=== PATIENT | male | born 1985 | race Caucasian/White ===

== ENCOUNTER 2016-09-07 09:06 | Day surgery (SDC) | payer OTHER ==
[~2016-09-07 09:06] MED LIST: LIDOCAINE 1%/EPINEPHRINE INJ 20 ML VIAL ONE; OXYMETAZOLINE HCL 0.05% NASAL SPRAY 15 ML BOTTLE ONE
[2016-09-07] MEDS ORDERED: FENTANYL CITRATE INJ/PF 100 MCG/2 ML AMPUL ONE ×2 (10:46)
[2016-09-07] MEDS ORDERED: PROPOFOL INJ 200 MG/20 ML VIAL IV ONE (10:47)
[2016-09-07] MEDS ORDERED: ONDANSETRON HCL INJ/PF 4 MG/2 ML SDV ONE ×2 (10:47→14:07)
[2016-09-07] MEDS ORDERED: DEXAMETHASONE SOD PHOS INJ 10 MG/1 ML VIAL ONE ×2 (10:47→10:50)
[2016-09-07] MEDS ORDERED: HYDROMORPHONE HCL INJ/PF 2 MG/ML AMPULE ONE (10:47)
[2016-09-07] MEDS ORDERED: SUCCINYLCHOLINE CHLORIDE INJ 200 MG/10 ML VIAL ONE (10:48)
[2016-09-07] MEDS ORDERED: MIDAZOLAM 2 MG/2 ML INJ ONE (10:48)
[2016-09-07] MEDS ORDERED: WATER FOR INJECTION,STERILE 10 ML SDV ONE (10:51)
[2016-09-07] MEDS ORDERED: OXYMETAZOLINE HCL 0.05% NASAL SPRAY 15 ML BOTTLE ONE (13:31)
--- NOTE | 2016-09-07 14:10 | SURGICARE OPERATIVE REPORT E ---
[facility] Operative Report NAME: TERESE SHIRLEY AGE: 31Y DATE OF SURGERY: 09/07/2016 ROOM: PREOPERATIVE DIAGNOSIS: Chronic rhinosinusitis with nasal polyposis. POSTOPERATIVE DIAGNOSIS: Chronic rhinosinusitis with nasal polyposis. PROCEDURE: 1. Bilateral endoscopic complete ethmoidectomy. 2. Bilateral endoscopic sphenoidotomy. 3. Bilateral endoscopic frontal sinusotomy. 4. CT-based image guidance for revision procedure, nasal polyposis and dissection along the orbits and skull base. SURGEON: JACI FREEMAN M.D. ANESTHESIA: General endotracheal. ESTIMATED BLOOD LOSS: 100 mL. COMPLICATIONS: None. INTRAOPERATIVE FINDINGS: Status post prior sinus surgery appeared to include bilateral maxillary antrostomies and right-sided anterior ethmoidectomy and middle turbinectomy as well as inferior turbinectomies. The right remnant ethmoid cavity was obstructed by nasal polyps. INDICATIONS FOR PROCEDURE: A 31-year-old male with chronic sinusitis and nasal polyps who underwent prior sinus surgery but continued to have recurring and worsening nasal obstruction. Endoscopic examination on CT revealed evidence of sinonasal polyposis in both ethmoid sinuses that were subsequently obstructing the frontal and sphenoid outflows. PROCEDURE IN DETAIL: The patient was met in the preop holding area. All questions were answered and consent was verified. He was then brought back to the operating room and placed supine on the operating table and general endotracheal anesthesia was induced without difficulty. The table was turned for endoscopic sinus surgery. A [employer] fusion headpiece was taped on his forehead and the image guidance system was calibrated using external landmarks on a recent sinus CT. The accuracy was verified prior to commencing the case and image guided suctions were used to assist me in the dissection throughout the case. He was prepped and draped in standard fashion and the nasal cavity was decongested with oxymetazoline. A preoperative time out was performed. A 0 degree endoscope was used to begin the procedure. Local anesthetic was infiltrated along the axilla of the middle turbinates bilaterally and the sphenopalatine foramen region. The left side was approached first. The maxillary antrum was wide open and the sinus appeared healthy. I turned my attention to the ethmoid cavity which was addressed anteriorly with curettes to break up the bony septations and a power microdebrider to remove polyp tissue. This was carried out from medial to lateral toward the lamina papyracea. The posterior ethmoid cells was entered at the level of the basal lamella of the middle turbinate and the posterior cells were removed allowing me to identify the superior turbinate. The inferior 1/3 of the third turbinate was resected and the sphenoid ostium was entered. It was then enlarged with a straight mushroom punch. The posterior ethmoid cells were then subsequently removed after the skull base was identified with an angled curette. The agger nasi cells were then removed via a punch out procedure by removing the inferior aspect of the agger nasi with a Hajek punch and the cells were then curetted with an angled curette from posterior to anterior away from the skull base. This allowed ample access to the frontal outflow which was readily visible with a 0 degree scope. Subsequently a 30 degree scope was used to further exam the frontal sinusotomy which was then expanded carefully with a Hosemann frontal punch. The left side was packed and the right side was similarly approached. There was no middle turbinate on the right side, so the landmarks were more distorted. Polypoid tissue was removed with a microdebrider from medial to lateral and the posterior ethmoid cavity which appears to have been partially dissected was entered. The sphenoid sinus was similarly identified and enlarged with a straight mushroom punch. Dissection and removal of ethmoid septations then proceeded from posterior to anterior along the skull base. The agger nasi were removed via a similar punch-out procedure, allowing access to the frontal outflow which was then enlarged using an angled frontal punch under 30 degree scope visualization. The nasal and ethmoid cavities were verified for hemostasis and irrigated. Stammberger Sinu-Foam reconstituted with 10 mg of Decadron was placed on each ethmoid cavity. The nasal cavity and pharynx were suctioned and he was turned over to the anesthesia for reversal and extubation. He tolerated the procedure well. DICTATING PHYSICIAN: JACI FREEMAN M.D. [id number] PHY#: [id number] ID: [id number] JOB#: [id number] ACCT: [id number] cc:JACI FREEMAN M.D. > [facility]
[2016-09-07] MEDS ORDERED: PROMETHAZINE HCL INJ 25 MG/1 ML VIAL ONE (14:31)
== END 2016-09-07 14:42 | disposition home or self-care (01) ==
LOC: SC 09:06
PROVIDERS: ATTEND Otolaryngology
PROC: 09TU4ZZ Resection of Right Ethmoid Sinus, Percutaneous Endoscopic Approach (ICD-10-PCS; 2016-09-07)
PROC: 09TX4ZZ Resection of Left Sphenoid Sinus, Percutaneous Endoscopic Approach (ICD-10-PCS; 2016-09-07)
PROC: 09TW4ZZ Resection of Right Sphenoid Sinus, Percutaneous Endoscopic Approach (ICD-10-PCS; 2016-09-07)
PROC: 09BT4ZZ Excision of Left Frontal Sinus, Percutaneous Endoscopic Approach (ICD-10-PCS; 2016-09-07)
PROC: 09BS4ZZ Excision of Right Frontal Sinus, Percutaneous Endoscopic Approach (ICD-10-PCS; 2016-09-07)
PROC: 09TV4ZZ Resection of Left Ethmoid Sinus, Percutaneous Endoscopic Approach (ICD-10-PCS; principal; 2016-09-07 10:15)
DX: J32.9 Chronic sinusitis, unspecified (principal); J33.9 Nasal polyp, unspecified; Z88.0 Allergy status to penicillin; Z88.1 Allergy status to other antibiotic agents
CPT/HCPCS: 31255; 31276; 31288; J2250; J3490 ×3; J1170; J2550; J0330; J2405; J2704; J1100; 160; J3010